=== PATIENT | male | born 1990 | race Caucasian/White ===

== ENCOUNTER 2020-12-19 16:19 | Emergency (ER) | payer BC ==
[~2020-12-19 16:19] MED LIST: IBUPROFEN600 MG PO; NORCO 7.5-3251 EACH PO
[2020-12-19 17:19] LABS: HEMOGLOBIN 13.5 gm/dl (14.0-17.5); RED BLOOD COUNT 4.7 M/UL (4.20-5.50); WHITE BLOOD COUNT 8.1 K/UL (4.5-11.0)
[2020-12-19 17:39] LABS: BUN/CREATININE RATIO 12 (0-10)
[2020-12-19] MEDS ORDERED: ASPIRIN CHEWABL81 MG PO (17:54)
== END 2020-12-19 21:00 | disposition home or self-care (01) ==
LOC: ER1 16:19
PROVIDERS: Emergency Medicine
DX: R07.9 Chest pain, unspecified (principal); I10 Essential (primary) hypertension; E66.9 Obesity, unspecified; F17.200 Nicotine dependence, unspecified, uncomplicated
CPT/HCPCS: 71045; 80053; 82550; 82553; 83690; 83874; 84484; 85025; 85379; 93005; 99285

== ENCOUNTER 2021-03-24 16:34 | Emergency (ER) | payer BC ==
[~2021-03-24 16:34] MED LIST changes: +ASPIRIN CHEWABL81 MG PO
== END 2021-03-24 21:35 | disposition home or self-care (01) ==
LOC: ER1 16:34
DX: S99.921A Unspecified injury of right foot, initial encounter (principal); Z86.16 Personal history of COVID-19; W20.8XXA Other cause of strike by thrown, projected or falling object, initial encounter
CPT/HCPCS: 73630; 99283